=== PATIENT | female | born 1995 | race Caucasian/White ===

== ENCOUNTER 2019-07-31 13:58 | Emergency (ER) | payer BC, MEDICAID ==
--- OUTSIDE RECORDS SUMMARY | 2019-07-31 14:03 | XMS REPORT | Continuity of Care Document ---
:1995 External Reference #:[id number] Author Name KIN Fiore Address [address] [place] [address] Care Team Providers Name Role Phone Merry Mitchell M.D. - Family Medicine Care Team Information Executive Officer Unavailable Problems Active Problems Provider Date Migraine without aura, not refractory Merry Mitchell M.D. Onset: 01/07/2017 Anxiety state Merry Mitchell M.D. Onset: 01/07/2017 Social History Type Date Description Comments Sex Unknown Tobacco Use Start: Unknown End: Former Cigarette Smoker 5 years x 1/2 ppd ETOH Use Social Alcohol Tobacco Use Start: Unknown End: Patient is a former smoker Unknown Smoking Status Reviewed: 07/31/19 Patient is a former smoker Allergies, Adverse Reactions, Alerts Description No Known Drug Allergies Medications Active Medications SIG Qnty Indications Ordering Date Provider Depo-Provera 150mg intramuscular 1ml N92.1 Lorrie 12/15/2018 150mg/ml every 3 months Stefan, CUSTOMER MANAGER Suspension Adapalene apply to affected 45gm L70.9 Mary Robles 04/08/2018 0.1% Gel area once to twice a Ivan, CYCLE LIAISON day Zofran Odt 1-2 tab under tongue 30tabs Mary Robles 03/16/2018 4mg every 8 hours as Ivan, CYCLE LIAISON Tablets Dispers needed Trazodone HCL take 1.5 tablet by 135tabs G47.00 Mary Robles 07/29/2017 100mg mouth at bedtime Ivan, CYCLE LIAISON Tablets Amitriptyline HCL take 2 tablet by 60tabs G43.009 Merry Mitchell 07/01/2017 mouth every evening M.D. 75mg Tablets Rizatriptan Benzoate 1 tab by mouth at 15tabs Mary Robles 06/24/2017 onset migraine can Ivan, CYCLE LIAISON 10mg Tablets Dispers repeat 2 hours later Medications Administered in Office Medication SIG Qnty Indications Ordering Provider Date Injection Subcutaneous Or Merry Mitchell M.D. 01/02/2019 Intramuscular Injection Injection Medroxyprogesterone Merry Mitchell M.D. 01/13/2018 Acetate 1 ML (Depo-Provera) Injection Injection Subcutaneous Or Merry Mitchell M.D. 01/13/2018 Intramuscular Injection Injection Medroxyprogesterone Merry Mitchell M.D. 10/28/2017 Acetate 1 ML (Depo-Provera) Injection Injection Subcutaneous Or Merry Mitchell M.D. 10/28/2017 Intramuscular Injection Injection Medroxyprogesterone Merry Mitchell M.D. 08/18/2017 Acetate 1 ML (Depo-Provera) Injection Injection Subcutaneous Or Merry Mitchell M.D. 08/18/2017 Intramuscular Injection Injection Medroxyprogesterone Merry Mitchell M.D. 05/20/2017 Acetate 1 ML (Depo-Provera) Injection Injection Subcutaneous Or Merry Mitchell M.D. 05/20/2017 Intramuscular Injection Injection Medroxyprogandresone Merry Mitchell M.D. 02/24/2017 Acetate 1 ML (Depo-Provera) Injection Immunizations CPT Code Status Date Vaccine Reaction Lot # [id number] Given 03/03/2019 Tdap Tetanus, W Pertussis [id number] Given 01/30/2009 Hep A Ped 2-Dose Immunization 61498 Given 06/29/2007 Meningococcal Conjugate Vaccine,Serogroups menactra For Intramuscular Use 54190 Given 06/29/2007 Varicella (Chicken Pox) Immunization 60728 Given 01/06/2007 gardasil 9 66608 Given 09/21/2006 gardasil 9 24302 Given 07/08/2006 gardasil 9 63665 Given 03/18/2006 Tdap Tetanus, W Pertussis 57140 Given 01/29/1999 DTaP Immunization 86261 Given 01/29/1998 IPV Inactive Poliovirus Vaccine 99627 Given 01/29/1998 MMR Virus Immunization 88524 Given 06/10/1995 Varicella (Chicken Pox) Immunization 82243 Given 12/12/1994 Hib PRP-T Conjugate 4 Dose Schedule 02554 Given 12/11/1994 DTaP Immunization 01249 Given 12/11/1994 MMR Virus Immunization 21770 Given 12/11/1994 IPV Inactive Poliovirus Vaccine 91005 Given 1993 Hepatitis B Immunization, [place]-19 Years 32373 Given 1993 DTaP Immunization 79083 Given 1993 Hib PRP-T Conjugate 4 Dose Schedule 25588 Given 1993 IPV Inactive Poliovirus Vaccine 01294 Given 1993 DTaP Immunization 68860 Given 1993 Hib PRP-T Conjugate 4 Dose Schedule 54826 Given 1993 Hepatitis B Immunization, -19 Years 64843 Given 1993 IPV Inactive Poliovirus Vaccine 17053 Given 1993 DTaP Immunization 55731 Given 1993 Hib PRP-T Conjugate 4 Dose Schedule 59341 Given 1993 Hepatitis B Immunization, -19 Years Vital Signs Date Vital Result Comment 07/31/2019 12:59pm BP Systolic 108 mmHg BP Diastolic 56 mmHg Heart Rate 68 /min Body Temperature 98.4 F Respiratory Rate 12 /min Height 64.5 inches 5'4.50" Weight 121.00 lb BMI (Body Mass Index) 20.4 kg/m2 05/30/2019 4:13pm BP Systolic 110 mmHg BP Diastolic 70 mmHg Heart Rate 68 /min Body Temperature 98.9 F Respiratory Rate 16 /min Height 64.5 inches 5'4.50" Weight 125.00 lb BMI (Body Mass Index) 21.1 kg/m2 Results Description No Information Available Procedures Description No Information Available Medical Devices Description No Information Available Encounters Type Date Location Provider Dx Diagnosis Office Visit 05/30/2019 [facility] Office Merry Mitchell, G43.109 Migraine with aura, 4:10p M.D. not intractable, w/o status migrainosus Assessments Date Code Description Provider 07/31/2019 R10.12 Left upper quadrant pain KIN Fiore 05/30/2019 G43.109 Migraine with aura, not intractable, Merry Mitchell M.D. without status migrainosus 03/03/2019 Z23 Encounter for immunization Mary Ivan NP Plan of Treatment 07/31/2019 - Keturah Garcia, PAR10.12 Left upper quadrant painNew Labs:CCS-Comp Metabolic (Fma) Femal, Ordered: 07/31/19CBC Electronic (Fma), Ordered: Uric Acid (CMC,CX,Fma), Ordered: 07/31/19New Xrays:CT Abdomen & Pelvis W/ O Contrast, Ordered: 07/31/19Comments:Concerned about kidney stone. Check CT of the abdomen. Lots of water. Consistent use of Ibuprofen 600 mg every 6 hours, tylenol 1000 mg every 6 hours. Call if pain isn't controlled by above.ER with anyworsening pain, nausea, vomiting, feverAllComments:PCMHMedication Management Patient Understands medications he's taking? Yes Are there Barriers to Adherence? No Has the patient been asked about herbal supplements and therapies, and OTC meds? Yes Care Plan1. Patient has been queried about patient's goals/preferences and functional/lifestyle goals at relevant visits. Yes If relevant, describe: N/A2. Treatment goals as explained to the patient: above3. Are there barriers to meeting treatment goals? No If Yes , please describe:4. Self-Management goals as described to the patient: Yes As always, we strongly encourage a healthy diet and making physical activity a part of your every day life. If you have questions about how or where to start, please contact the office. Functional Status Description No Information Available Mental Status Description No Information Available Referrals Description No Information Available
[2019-07-31 14:07] VITALS: BP 134/47
--- NOTE | 2019-07-31 14:18 | UC ---
Abdominal Pain Female HPI - HPI Summary HPI Summary: 24 yo, previously well, awoke with acute left flank pain this morning. Pain is sharp, increases with movement or with coughing. She was seen by her PMD this morning who thought that she might have a renal stones based on pain and presence of blood in the urine. Advised to come here because in the primary care setting she needed prior authorization for a CT. No vomiting or diarrhea, but she does have nausea. Amenorrheic for several months as she is on depo-provera. No hx of ovarian cysts. No analgesics used because she did not have time. No dyspareunia with recent intercourse. - History of Current Complaint Chief Complaint: UCBackPain Stated Complaint: BACK PAIN Time Seen by Provider: 07/31/19 14:06 Hx Obtained From: Patient Hx Last Menstrual Period: 06/10/13 Onset/Duration: Sudden Onset, Lasting Hours - onset this moring. Timing: Constant Severity Initially: Moderate Severity Currently: Moderate Pain Intensity: 9 Location: Other - left flnak. Radiates: No Character: Aching, Sharp Aggravating Factor(s): Movement, Deep Breaths Alleviating Factor(s): Nothing Associated Signs and Symptoms: Positive: Nausea. Negative: Diaphoresis, Fever, Vomiting, Diarrhea Allergies/Adverse Reactions: Allergies Allergy/AdvReac Type Severity Reaction Status Date / Time No Known Allergies Allergy Verified 07/31/19 14:07 Home Medications: Home Medications Rizatriptan Benzoate [[employer]culation Department Chief] 10 mg PO ONCE 07/31/19 [History Confirmed 08/08] medroxyPROGESTERone ACETATE* [DEPO-Provera] 150 mg IM 07/31/19 [History] PMH/Surg Hx/FS Hx/Imm Hx Previously Healthy: Yes - Surgical History Surgical History: None - Family History Known Family History: Positive: Respiratory Disease - MGM has recently had bronchitis, COPD suspected., Other - MGGM with aneurysm, location unknown. - Social History Occupation: Student Alcohol Use: Occasionally Substance Use Type: None Smoking Status (MU): Former Smoker Household Exposure Type: Cigarettes Review of Systems All Other Systems Reviewed And Are Negative: Yes Constitutional: Positive: Negative Skin: Positive: Negative Eyes: Positive: Negative ENT: Positive: Negative Respiratory: Positive: Negative Cardiovascular: Positive: Negative Gastrointestinal: Positive: Abdominal Pain, Nausea Motor: Positive: Negative Neurovascular: Positive: Negative Musculoskeletal: Positive: Negative Neurological: Positive: Negative Psychological: Positive: Negative Is Patient Immunocompromised?: No Physical Exam Triage Information Reviewed: Yes Appearance: Well-Appearing, Pain Distress - mild to moderate. Vital Signs: Initial Vital Signs Temp 98.0 F 07/31/19 14:02 Pulse 81 07/31/19 14:02 Resp 18 07/31/19 14:02 BP 134/47 07/31/19 14:02 Pulse Ox 100 07/31/19 14:02 ENT: Positive: Pharynx normal Respiratory: Positive: Lungs clear, Normal breath sounds Cardiovascular: Positive: RRR, No Murmur Abdomen Description: Positive: No Organomegaly, Soft, CVA Tenderness (R), CVA Tenderness (L), Guarding. Negative: Distended Musculoskeletal Exam: Normal Musculoskeletal: Positive: Strength Intact, ROM Intact Neurological Exam: Normal Psychological Exam: Normal Skin Exam: Normal Diagnostics - Laboratory Lab Results: UA with trace hematuria, HCG negative. - Radiology No standard instances Radiology Interpretation Completed By: Radiologist Summary of Radiographic Findings: CT abd and pelvis negative Abd Pain Female Course/Dx - Course Course Of Treatment: History and exam done by Dr. Carson CT negative - Differential Dx/Diagnosis Provider Diagnosis: Left flank pain Discharge ED - Sign-Out/Discharge Documenting (check all that apply): Patient Departure, Sign-Out Patient - Dr. Hebert will follow up CT Signing out patient TO: Ryan Hebert All imaging exams completed and their final reports reviewed: Yes - Discharge Plan Condition: Stable Disposition: HOME Patient Education Materials: Flank Pain (ED) Referrals: Merry Mitchell MD [Primary Care Provider] - 1 Day (recheck in 1-2 days) Additional Instructions: advil or aleve for pain - Billing Disposition and Condition Condition: STABLE Disposition: Home
== END 2019-07-31 15:27 | disposition home or self-care (01) ==
LOC: UCEAST 13:58
DX: R10.9 Unspecified abdominal pain (principal); R11.0 Nausea; Z87.891 Personal history of nicotine dependence
CPT/HCPCS: 74176; 81003; 84702; 99211; G0463

== ENCOUNTER 2019-11-22 16:25 | Emergency (ER) | payer MEDICAID, OTHER ==
[2019-11-22 17:04] VITALS: BP 126/70
--- NOTE | 2019-11-22 17:19 | UC ---
Complaint Female HPI - HPI Summary HPI Summary: 24 y/o female presents to the urgent care c/o Yellow thin vaginal discharge, slight odor, itching x10-14 days. Pt has had BV before and suspects this is what she has again. She originally thought she had a yeast infection, her PCP rx'd Diflucan 11/13 , and it did not resolve her symptoms. Pt interested in STD testing also. - History Of Current Complaint Chief Complaint: UCGU Stated Complaint: PERSONAL Time Seen by Provider: 11/22/19 17:06 Hx Obtained From: Patient Hx Last Menstrual Period: unknown Pain Intensity: 0 - Allergies/Home Medications Allergies/Adverse Reactions: Allergies Allergy/AdvReac Type Severity Reaction Status Date / Time No Known Allergies Allergy Verified 11/22/19 16:56 Home Medications: Home Medications Ibuprofen TAB* [Advil TAB*] 600 mg PO ONCE 11/22/19 [History Confirmed 11/22/19] metroNIDAZOLE VAGINAL 0.75%* 1 applic VAGINAL BEDTIME #1 tube 11/22/19 [Rx] PMH/Surg Hx/FS Hx/Imm Hx - Surgical History Surgical History: None - Family History Known Family History: Positive: Respiratory Disease - MGM has recently had bronchitis, COPD suspected., Other - MGGM with aneurysm, location unknown. - Social History Alcohol Use: Occasionally Substance Use Type: None Smoking Status (MU): Former Smoker When Did the Patient Quit Smoking/Using Tobacco: 2018 Household Exposure Type: Cigarettes Physical Exam - Summary Physical Exam Summary: Vital signs: reviewed General: well developed, well nourished female sitting in the examining table w/o any acute distress. Head: Normocephalic, no lesions. Eyes: PERRLA, EOM's full, conjunctiva clear, fundi grossly normal. Ears: EAC's clear, TM's normal. Nose: Mucosa normal, no obstruction. Throat: Clear, no exudates, no lesions. Neck: Supple, no masses, no thyromegaly, no bruits. Chest: Lungs clear, no rales, no rhonchi, no wheezes. Heart: RR, no murmurs, no rubs, no gallops. Abdomen: Soft, no tenderness, no masses, BS normal. Pelvic: External genitalia within normal limits. There is no lesions there is no masses noted. Speculum exam: The vaginal jones are within normal limits w / normal clear vaginal discharge, no lesions or rashes. The cervix is closed with no lesions or masses. There is no CMT's, and no adnexal masses. Sample sent to Lab for G/C and Affirm panel. Rectal: No lesions, no hemorrhoids, Back: Normal curvature, no tenderness. Extremities: FROM, no deformities, no edema, no erythema. Neuro: Physiological, no localizing findings. Skin: Normal, no rashes, no lesions noted. Triage Information Reviewed: Yes Vital Signs: Initial Vital Signs Temp 98.7 F 11/22/19 16:57 Pulse 72 11/22/19 16:57 Resp 14 11/22/19 16:57 BP 126/70 11/22/19 16:57 Pulse Ox 100 11/22/19 16:57 Complaint Female Dx - Differential Dx/Diagnosis Differential Diagnosis/HQI/PQRI: Cervicitis, Pelvic Inflammatory Disease, , Renal Colic, Sexually Transmitted Disease, Urinary Tract Infection Provider Diagnosis: Bacterial vaginosis, Screening for STD (sexually transmitted disease) Discharge ED - Sign-Out/Discharge Documenting (check all that apply): Patient Departure - D/C home All imaging exams completed and their final reports reviewed: No Studies - Discharge Plan Condition: Stable Disposition: HOME Prescriptions: metroNIDAZOLE VAGINAL 0.75%* 1 applic VAGINAL BEDTIME #1 tube Patient Education Materials: Bacterial Vaginosis (ED) Referrals: Merry Mitchell MD [Primary Care Provider] - 3 Days Additional Instructions: 1-Urine positive for trace of blood and leukoesteraces. tet: negative. However your are not presenting w/ uirnary symptoms. Urine culture was sent to lab to r/oUTI, You will be notified of any abnormality for further management 2- Please apply Metrogel vaginal cream as directed. 3- Specimen were sent to lab, if anything abnormal you will receive a call from us for further treatment. 4-If not improvement of symptoms please return to the urgent care or f/u with your MASTER MERCHANDISER in 3 days for further evaluation and treatment - Billing Disposition and Condition Condition: STABLE Disposition: Home
--- NOTE | 2019-11-24 07:16 | UC ---
- Progress Note Progress Note: please notify patient + trich partner needs treatment take four 500mg flagyl (one time dose) stop intravaginal flagyl Course/Dx - Diagnoses Provider Diagnoses: Bacterial vaginosis, Screening for STD (sexually transmitted disease) Discharge ED - Sign-Out/Discharge Documenting (check all that apply): Post-Discharge Follow Up All imaging exams completed and their final reports reviewed: No Studies - Discharge Plan Condition: Stable Disposition: HOME Prescriptions: metroNIDAZOLE [Flagyl] 2,000 mg PO ONCE #4 tablet metroNIDAZOLE VAGINAL 0.75%* 1 applic VAGINAL BEDTIME #1 tube Patient Education Materials: Bacterial Vaginosis (ED) Referrals: Merry Mitchell MD [Primary Care Provider] - 3 Days Additional Instructions: 1-Urine positive for trace of blood and leukoesteraces. tet: negative. However your are not presenting w/ uirnary symptoms. Urine culture was sent to lab to r/oUTI, You will be notified of any abnormality for further management 2- Please apply Metrogel vaginal cream as directed. 3- Specimen were sent to lab, if anything abnormal you will receive a call from us for further treatment. 4-If not improvement of symptoms please return to the urgent care or f/u with your UX ENGINEER in 3 days for further evaluation and treatment - Billing Disposition and Condition Condition: STABLE Disposition: Home
[2019-11-24 09:50] LABS: Chlamydia trachomatis NAA Negative (Negative); Neisseria gonorrhoeae (GC) NAA Negative (Negative)
== END 2019-11-22 18:08 | disposition home or self-care (01) ==
LOC: UCCORT 16:25
DX: Z11.3 Encounter for screening for infections with a predominantly sexual mode of transmission (principal); N76.0 Acute vaginitis; Z87.891 Personal history of nicotine dependence
CPT/HCPCS: 81003; 84702; 87086; 87480; 87491; 87510; 87591; 87660; 99212; G0463

== ENCOUNTER 2023-09-10 02:50 | Inpatient (IN) ==
[2023-09-10] MEDS ORDERED: Lidocaine 1% VIAL 10 MG/ML 30 ML VIAL INJ PRN (03:24)
[2023-09-10] MEDS ORDERED: Lactated Ringers 1000 ml BAG 1,000 ML IV ONE ×2 (03:24→05:01)
[2023-09-10] MEDS ORDERED: OBEPIDURAL (200 ML) 200 ML EPIDURAL ONE (03:49)
[2023-09-10] MEDS ORDERED: Lidocaine 1.5% EPI 1:200,000 30 ML SDV ONE (03:49)
[2023-09-10 04:12] LABS: Hematocrit 33.2 % (35-45); Hemoglobin 10.9 g/dL (11.5-14.3); Mean Corpuscular Hgb Conc 32.9 g/dL (31-36); Mean Corpuscular Volume 73.1 fL (80-97); Mean Platelet Volume 9.7 fL (7.5-11.2); Platelet Count 244 10^3/uL (150-450); Red Blood Count 4.54 10^6/uL (3.63-4.92); Red Cell Distribution Width 17.4 % (12-17); White Blood Count 6.4 10^3/uL (3.8-11.8)
[2023-09-10 04:19] LABS: Urine Benzodiazepine Screen None Detected (None Detect); Urine Cannabinoids Screen None Detected (None Detect); Urine Opiates Screen None Detected (None Detect)
[2023-09-10 04:20] LABS: Urine Creatinine Concentration 60.6 mg/dL (20.00-320.00); Urine TP Creat Ratio 0.36 mg/mg
[2023-09-10 04:28] LABS: Albumin 3.7 g/dL (3.2-5.2); Albumin/Globulin Ratio 1.3 (1-3); Calcium 9.3 mg/dL (8.6-10.3); Creatinine, Serum 0.67 mg/dL (0.51-0.95); Globulin 2.8 g/dL (2-4); Potassium 4.1 mmol/L (3.5-5.0); Total Bilirubin 0.3 mg/dL (0.2-1.0); Total Protein 6.5 g/dL (6.4-8.9); Uric Acid 5.4 mg/dL (2.3-6.6); eGFR CKD-EPI 120.5 (>60)
[2023-09-10] MEDS ORDERED: Phenylephrine 40 mcg/mL 10mL (400mcg) SYRINGE IV PUSH PRN ×2 (05:01)
[2023-09-10] MEDS ORDERED: Sodium Citrate/Citric Acid LIQ 15 ML UDC PO PRN (05:01)
[2023-09-10 05:08] LABS: ABS Eosinophils 0.1 10^3/uL (0.0-0.5); ABS Lymphocytes 1.4 10^3/uL (1.0-4.8); ABS Monocytes 0.8 10^3/uL (0.0-0.9); ABS Neutrophils 4.1 10^3/uL (1.5-7.6); ABS Nucleated RBC 0.01 10^3/ul; Eosinophil % 1.5 %; Lymphocyte % 22.5 %; Microcytosis 1+; Nucleated Red Blood Cells % 0.1 %/100WBC (0.0-0.8)
[2023-09-10] MEDS ORDERED: OBEPIDURAL (200 ML) 200 ML EPIDURAL SCH (06:00)
[2023-09-10] MEDS ORDERED: Lactated Ringers 1000 ml BAG 1,000 ML IV SCH ×2 (06:00→18:00)
[2023-09-10 07:00] LABS: Urine Appearance Cloudy; Urine Bilirubin Negative (Negative); Urine Blood 2+ (Negative); Urine Color Yellow; Urine Glucose Negative (Negative); Urine Ketones Negative (Negative); Urine Nitrite Negative (Negative); Urine Protein Negative (Negative); Urine Specific Gravity 1.014 (1.002-1.030); Urine Urobilinogen Negative (Negative)
[2023-09-10 07:11] LABS: Urine Bacteria Absent (Absent); Urine Red Blood Cell 2+(6-10/hpf) (Absent); Urine Squamous Epithelial Cell Present (Absent); Urine White Blood Cell Absent (Absent)
[2023-09-10] MEDS ORDERED: Oxytocin 10 UNITS/ML 1 ML VIAL IM ONE (17:34)
[2023-09-10] MEDS ORDERED: Witch Hazel PAD JAR TOPICAL PRN (17:34)
[2023-09-10] MEDS ORDERED: Dibucaine 1% OINT 28.35 GM TUBE PR PRN (17:34)
[2023-09-11 07:05] LABS: ABS Basophils 0.1 10^3/uL (0.0-0.1); ABS Eosinophils 0.1 10^3/uL (0.0-0.5); ABS Lymphocytes 1.2 10^3/uL (1.0-4.8); ABS Monocytes 1.1 10^3/uL (0.0-0.9); ABS Neutrophils 9.4 10^3/uL (1.5-7.6); ABS Nucleated RBC 0.01 10^3/ul; Eosinophil % 0.9 %; Hematocrit 27.9 % (35-45); Lymphocyte % 10.4 %; Mean Corpuscular Hemoglobin 23.8 pg (27-33); Mean Corpuscular Hgb Conc 32.2 g/dL (31-36); Mean Corpuscular Volume 73.9 fL (80-97); Platelet Count 185 10^3/uL (150-450); Red Blood Count 3.78 10^6/uL (3.63-4.92); Red Cell Distribution Width 17.7 % (12-17)
[2023-09-11] MEDS ORDERED: RHO D Immune Globulin (HUMAN) 300 MCG = 1,500 I.U. INJ IM ONE (13:16)
[2023-09-12 07:59] VITALS: BP 136/87
== END 2023-09-12 16:30 | disposition home or self-care (01) | DRG 560 ==
LOC: MCHOBOUT 02:50 → MCHOB 03:32
PROVIDERS: ADMIT Midwife; ATTEND Registered Nurse